=== PATIENT | female | born 1975 | race Caucasian/White ===

== ENCOUNTER 2022-06-01 15:54 | Inpatient (IN) ==
[2022-06-01] MEDS ORDERED: Iopamidol - 370 500 ML MLS IVP ONE (16:30)
[2022-06-01] MEDS ORDERED: Vancomycin 1,500 MG/265 ML IV.SOLN IVPB ONE (17:00)
[2022-06-01 17:41] LABS: Calcium 9.4 mg/dL (8.6-10.3); Potassium 4.7 mEq/L (3.5-5.1)
[2022-06-01 18:29] LABS: Hematocrit 36.8 % (35.3-44.9); Hemoglobin 11.7 g/dL (11.5-15.4); Mean Corpuscular HGB Conc 31.8 g/dL (31.6-35.5); Mean Corpuscular Hemoglobin 27.2 pg (28.0-33.3); Mean Corpuscular Volume 85.6 fL (83.0-100.0); Red Cell Distribution Width 15.5 % (11.5-14.5); Segmented Neutrophils % 61.6 %
[2022-06-01 18:31] LABS: Basophils # 0.1 K/mcL (0.0-0.2); Basophils % 0.4 %; Eosinophils # 0.2 K/mcL (0.0-0.6); Eosinophils % 1.6 %; Immature Granulocytes % 0.3 % (0-4); Immature Platelets 5.3 % (1.1-6.1); Lymphocytes # 3.4 K/mcL (0.6-4.6); Monocytes # 1.3 K/mcL (0.0-1.3); Monocytes % 10.1 %; Neutrophils # 8.1 K/mcL (1.6-8.9); Platelet Count 277 K/mcL (140-400); White Blood Count 13.2 K/mcL (4.3-11.1)
[2022-06-01] MEDS ORDERED: Piperacillin/Tazobactam 3.375 GM in 0.9 % Sodium Chloride Mini Bag 100 ML IVPB ONE (20:01)
[2022-06-01] MEDS ORDERED: Melatonin 3 MG TABLET PO PRN (21:00)
[2022-06-01] MEDS ORDERED: Ondansetron ODT 4 MG TAB.RAPDIS SL PRN (21:00)
[2022-06-01] MEDS ORDERED: Naloxone 0.4 MG/ML INJ IVP PRN (21:00)
[2022-06-01] MEDS ORDERED: D5% in Water 1,000 ML IVC PRN (21:09)
[2022-06-01] MEDS ORDERED: Dextrose Gel 15 GM/37.5 ML TUBE PO PRN ×2 (21:09)
[2022-06-01] MEDS ORDERED: *HR* Dextrose 50 % in Water (Syg) 50 ML SYRINGE IVP PRN (21:09)
[2022-06-01] MEDS ORDERED: Insulin DETEMIR 100 UNIT/ML X5UNITS SUBQ SCH (21:21)
[2022-06-02] MEDS: Pregabalin 50 MG CAPSULE PO SCH ×4 (00:16→20:18)
[2022-06-02] MEDS: Insulin LISPRO 300 UNITS/3 ML VIAL SUBQ SCH ×3 (01:07→22:06)
[2022-06-02] MEDS ORDERED: Piperacillin/Tazobactam 3.375 GM in 0.9 % Sodium Chloride Mini Bag 100 ML IVPB SCH (04:00)
[2022-06-02] MEDS ORDERED: Vancomycin 1,250 MG/262.5 ML IV.SOLN IVPB SCH (06:00)
[2022-06-02 08:42] LABS: Basophils % 0.4 %; Eosinophils # 0.4 K/mcL (0.0-0.6); Eosinophils % 4.4 %; Hematocrit 34.1 % (35.3-44.9); Hemoglobin 10.7 g/dL (11.5-15.4); Immature Granulocytes % 0.3 % (0-4); Lymphocytes # 2.6 K/mcL (0.6-4.6); Lymphocytes % 27.7 %; Mean Corpuscular HGB Conc 31.4 g/dL (31.6-35.5); Mean Corpuscular Hemoglobin 26.8 pg (28.0-33.3); Mean Corpuscular Volume 85.5 fL (83.0-100.0); Mean Platelet Volume 10.5 fL (9.4-12.4); Monocytes % 10.7 %; Neutrophils # 5.2 K/mcL (1.6-8.9); Platelet Count 305 K/mcL (140-400); Red Blood Count 3.99 M/mcL (3.82-4.97); Red Cell Distribution Width 15.6 % (11.5-14.5); Segmented Neutrophils % 56.5 %; White Blood Count 9.2 K/mcL (4.3-11.1)
[2022-06-02 08:49] LABS: INR 1.1; Prothrombin Time 11.8 Seconds (9.4-12.1)
[2022-06-02] MEDS ORDERED: predniSONE 5 MG TABLET PO SCH (09:00)
[2022-06-02] MEDS ORDERED: LEVOTHYROXINE SODIUM 100 MCG PO SCH (09:00)
[2022-06-02] MEDS ORDERED: Cholecalciferol (D-3) 1,000 UNIT (25MCG) TABLET PO SCH (09:00)
[2022-06-02] MEDS ORDERED: Aspirin Enteric Coated 81 MG Tablet PO SCH (09:00)
[2022-06-02] MEDS ORDERED: NON-FORMULARY MEDICATION 1 EACH EACH (Pregabalin [Lyrica] 100 MG Capsule) PO SCH (09:00)
[2022-06-02] MEDS ORDERED: *HR* Propofol 200 MG/20 ML VIAL IVP ONE (11:00)
[2022-06-02] MEDS ORDERED: *HR* FentaNYL (PF) 100 MCG/2 ML VIAL ONE (11:01)
[2022-06-02] MEDS ORDERED: Lidocaine -MPF 2% 5 ML VIAL ONE (11:01)
[2022-06-02] MEDS ORDERED: Ketamine HCL *QUVA* 50mg (1mL) SYRINGE ONE (11:05)
[2022-06-02] MEDS ORDERED: Ondansetron 4 MG/2 ML VIAL ONE (12:09)
[2022-06-02] MEDS ORDERED: Dextrose Gel 15 GM/37.5 ML TUBE PO PRN ×3 (13:18→20:19)
[2022-06-02] MEDS ORDERED: Melatonin 3 MG TABLET PO PRN (13:18)
[2022-06-02] MEDS ORDERED: Naloxone 0.4 MG/ML INJ IVP PRN (13:18)
[2022-06-02] MEDS ORDERED: *HR* Dextrose 50 % in Water (Syg) 50 ML SYRINGE IVP PRN ×2 (13:18→20:19)
[2022-06-02] MEDS ORDERED: D5% in Water 1,000 ML IVC PRN ×2 (13:18→20:19)
[2022-06-02] MEDS ORDERED: Ondansetron ODT 4 MG TAB.RAPDIS SL PRN (13:18)
[2022-06-02 14:12] LABS: BUN/Creatinine Ratio 24 (6-26); Blood Urea Nitrogen 19 mg/dL (6-20); Calcium 8.8 mg/dL (8.6-10.3); Carbon Dioxide 21 mEq/L (23-29); Chloride 112 mEq/L (98-107); Glucose 109 mg/dL (70-105); Magnesium 1.6 mg/dL (1.6-2.6); Osmolality,Calculated 295 (280-300); Phosphorous 4.1 mg/dL (2.7-4.5); Potassium 4.9 mEq/L (3.5-5.1); Sodium 141 mEq/L (136-145)
[2022-06-02] MEDS ORDERED: *HR* HYDROcodone/Acet 10/325 mg TABLET PO PRN (15:33)
[2022-06-02] MEDS: predniSONE 5 MG TABLET PO SCH (16:31)
[2022-06-02] MEDS ORDERED: Insulin LISPRO 300 UNITS/3 ML VIAL SUBQ SCH (18:00)
[2022-06-02] MEDS: Vancomycin 1,250 MG/262.5 ML IV.SOLN IVPB SCH (18:40)
[2022-06-02] MEDS: Piperacillin/Tazobactam 3.375 GM in 0.9 % Sodium Chloride Mini Bag 100 ML IVPB SCH (20:17)
[2022-06-02] MEDS: Insulin DETEMIR 100 UNIT/ML X5UNITS SUBQ SCH (20:17)
[2022-06-02] MEDS ORDERED: Insulin LISPRO 300 UNITS/3 ML VIAL SUBQ ONE (20:18)
[2022-06-02] MEDS ORDERED: traZODone 50 MG TABLET PO SCH (21:00)
[2022-06-02] MEDS: traZODone 50 MG TABLET PO SCH (22:04)
[2022-06-03] MEDS ORDERED: Insulin LISPRO 300 UNITS/3 ML VIAL SUBQ ONE (01:05)
[2022-06-03] MEDS: Piperacillin/Tazobactam 3.375 GM in 0.9 % Sodium Chloride Mini Bag 100 ML IVPB SCH ×2 (03:58→12:13)
[2022-06-03] MEDS: Vancomycin 1,250 MG/262.5 ML IV.SOLN IVPB SCH (05:58)
[2022-06-03] MEDS: Aspirin Enteric Coated 81 MG Tablet PO SCH (08:01)
[2022-06-03] MEDS: predniSONE 5 MG TABLET PO SCH ×2 (08:01→16:59)
[2022-06-03] MEDS: Pregabalin 50 MG CAPSULE PO SCH ×3 (08:01→20:56)
[2022-06-03] MEDS: Insulin DETEMIR 100 UNIT/ML X5UNITS SUBQ SCH ×2 (08:01→20:56)
[2022-06-03] MEDS: Insulin LISPRO 300 UNITS/3 ML VIAL SUBQ SCH ×4 (08:02→20:57)
[2022-06-03] MEDS: Cholecalciferol (D-3) 1,000 UNIT (25MCG) TABLET PO SCH (08:06)
[2022-06-03] MEDS: ceFAZolin 1,000 MG in 0.9 % Sodium Chloride Mini Bag 100 ML IVPB SCH ×2 (15:18→23:59)
[2022-06-03] MEDS: traZODone 50 MG TABLET PO SCH (23:28)
[2022-06-04 02:43] VITALS: PULSE 75
[2022-06-04 04:48] LABS: Basophils % 0.3 %; Eosinophils # 0.2 K/mcL (0.0-0.6); Eosinophils % 1.6 %; Hematocrit 33.2 % (35.3-44.9); Hemoglobin 10.3 g/dL (11.5-15.4); Immature Granulocytes % 0.3 % (0-4); Lymphocytes # 3.3 K/mcL (0.6-4.6); Lymphocytes % 29.7 %; Mean Corpuscular Hemoglobin 26.5 pg (28.0-33.3); Mean Corpuscular Volume 85.3 fL (83.0-100.0); Mean Platelet Volume 11.2 fL (9.4-12.4); Monocytes # 1.1 K/mcL (0.0-1.3); Monocytes % 9.5 %; Neutrophils # 6.6 K/mcL (1.6-8.9); Platelet Count 331 K/mcL (140-400); Red Blood Count 3.89 M/mcL (3.82-4.97); Red Cell Distribution Width 15.3 % (11.5-14.5); Segmented Neutrophils % 58.6 %; White Blood Count 11.2 K/mcL (4.3-11.1)
[2022-06-04 05:22] LABS: Albumin 3.3 g/dL (3.5-5.7); Albumin/Globulin Ratio 1.4 (1.1-2.2); Bilirubin,Total 0.2 mg/dL (0.3-1.0); Calcium 8.6 mg/dL (8.6-10.3); Globulin 2.4 g/dL (2.4-3.5); Total Protein 5.7 g/dL (6.4-8.9)
[2022-06-04 06:31] VITALS: TEMP 97.7; O2SAT 96
[2022-06-04 07:41] VITALS: BP 138/69
[2022-06-04] MEDS: Pregabalin 50 MG CAPSULE PO SCH (08:48)
[2022-06-04] MEDS: Cholecalciferol (D-3) 1,000 UNIT (25MCG) TABLET PO SCH (08:48)
[2022-06-04] MEDS: Aspirin Enteric Coated 81 MG Tablet PO SCH (08:48)
[2022-06-04] MEDS: ceFAZolin 1,000 MG in 0.9 % Sodium Chloride Mini Bag 100 ML IVPB SCH (08:48)
[2022-06-04] MEDS: predniSONE 5 MG TABLET PO SCH (08:49)
[2022-06-04] MEDS: Insulin LISPRO 300 UNITS/3 ML VIAL SUBQ SCH (08:49)
[2022-06-04] MEDS ORDERED: Insulin DETEMIR 100 UNIT/ML X5UNITS SUBQ SCH (09:00)
== END 2022-06-04 11:18 | disposition home or self-care (01) | DRG 315 ==
LOC: EMEROOARM 15:54 → 3ANU 15:54
PROVIDERS: ADMIT Student in an Organized Health Care Education/Training Program; ATTEND Student in an Organized Health Care Education/Training Program